=== PATIENT | female | born 2000 ===

== ENCOUNTER 2020-02-08 14:39 | Emergency (ER) | payer MEDICAID, SELFPAY ==
[2020-02-08] VITALS (15 sets, daily range): BP systolic 126–195; BP diastolic 64–117; PULSE 68–90; RESP 14–16; TEMP 36.6–37.2; O2SAT 98–100
--- NOTE | 2020-02-08 16:22 | ED_ITS ---
HPI - General Adult General Chief complaint: Skin/Abscess/Foreign Body Stated complaint: abscess? Time Seen by Provider: 02/08/20 16:21 Source: patient Mode of arrival: ambulatory Limitations: no limitations History of Present Illness HPI narrative: This is a pleasant 20-year-old female with history of currently 4 days anemia on iron supplement who endorses to me that she has recently been discharged 4 days ago from [facility] where she was induced after 40 weeks 1 day for pre-eclampsia where she was subsequently given IV magnesium and hydralazine and discharge 4 days ago after doing well she was discharged home with Tylenol, ibuprofen and iron supplement she came in today because she noted that she had this lump in the right axilla that was there for several months it was no big then a quarter however or past couple days it got significantly bigger and causing discomfort. Upon arrival patient is noted to be hypertensive 172/116 aside from the pain in the axilla from the abscess denie s any chest pain, shortness of breath, abdominal pain, nausea, vomiting. Has not had any significant vaginal bleeding and has been trending down. Related Data Allergies Allergy/AdvReac Type Severity Reaction Status Date / Time shrimp Allergy Unknown Verified 02/08/20 16:09 Review of Systems Review of Systems: Constitutional: No Weight loss, No Fever, No Chills, No Night Sweats, No Fatigue, No Malaise ENT/Mouth: No Hearing loss, No Ear Pain, No Nasal Congestion, No Sinus Pain, No Hoarseness, No sore throat, No Rhinorrhea, No Swallowing Difficulty Eyes: No Eye Pain, No Swelling, No Redness, No Foreign Body, No Discharge, No Vision Changes Cardiovascular: No Chest Pain, No SOB, No Dyspnea on Exertion, No Orthopnea, No Edema, No Palpitations Respiratory: No Cough, No Sputum, No Wheezing, No Smoke Exposure, No Dyspnea Gastrointestinal: No Nausea, No Vomiting, No Diarrhea, No Constipation, No abdominal Pain Genitourinary: no irregular bleeding, No Dysuria, No Urinary Frequency, No Hematuria, No Urinary Incontinence, No Urgency, No Flank Pain, No Urinary Flow Changes, No Hesitancy Musculoskeletal: No joint pain, No Myalgias, No Joint Swelling Skin: No Skin Lesions, No rash, + right axilla indurated area Neuro: No Weakness, No Numbness, No Paresthesias, No Loss of Consciousness, No Dizziness, No Headache Psych:No Social Issues Heme/Lymph: No Bruising, No Bleeding,No Lymphadenopathy Endocrine: No Polyuria, No Polydipsia, No Temperature Intolerance Yes all other systems are reviewed and are negative [facility] Past Medical History Medical History (Updated 02/08/20 @ 20:27 by Lauri Manjarrez NP) Anemia Asthma Preeclampsia Social History Social History Alcohol intake: never Smoked in Last 30 Days: No Use of substances other than those prescribed or required for medical reasons: No Advance Directives: No Advance Directives Information Provided: No Physical Exam Vital Signs: Vital Signs: Last Vital Signs Temp 99.0 F 02/08/20 20:00 Pulse 68 02/08/20 20:00 Resp 16 02/08/20 20:00 BP 133/69 02/08/20 20:00 Pulse Ox 98 02/08/20 20:00 Body Mass Index 0.0 Reviewed Const: General: cooperative and healthy appearing; No acute distress or intoxicated appearing Nutritional Appearance: average body habitus Orientation/consciousness: patient oriented x3 HENMT: Head: Yes normal to inspection Ears: hearing grossly normal bilaterally Eyes: General: appearance normal, both eyes and all related structures Visual Ernst: normal visual ernst by confrontation Neck: Neck: Yes normal visual inspection and No tender Thyroid: Thyroid normal Chest: Chest palpation & inspection: normal inspection of the chest Resp: Effort & Inspection: normal respiratory effort Auscultation: clear to auscultation bilaterally Cardio: Jugular venous distension: no JVD Rate: regular rate Rhythm: regular rhythm GI: Inspection: Yes normal to inspection Percussion: Yes normal to percussion Auscultation: normal bowel sounds : General: Yes no CVA tenderness Back/Spine/Pelvis: Back: no CVA tenderness Skin: Other: Right axilla there is a large and area with slight erythema measuring 3 in x 3 in. There is tender palpation. There is no formed head or did General skin exam: no rashes or lesions noted Neuro: General: patient oriented x3 Extrem: General: Yes normal to inspection Course Course Course Narrative: AP of 20-year-old female 4 days history of preeclampsia treated with 4 mg IV magnesium and hydralazine at her visit at [facility] notes reviewed not on any antihypertensive at home presenting with right axilla abscess question pains response from this as well. Patient was give 4 mg IV morphine did improve blood pressure slightly but not much. Right axilla abscess was drained using local block significant discharge and packed, refer to procedure note. Patient subsequently requiring IV antihypertensives for blood pressure management couple of doses and given that we have no LDR here recommendation of her OBGYN was to transfer patient to [facility]. Patient was given dose of Augmentin for the right axilla abscess. Case was discussed with transfer line and OBGYN Dr. Krueger agreeable plan. Accepting care with recommendation for nifedipine 30 mg ER p.o. during the course of the ED stay patient has remained quite comfortable in no acute distress aside from slight pain from the right axilla abscess which was treated she has no other complaints today. Reevaluation(s) Reevaluation #1: Patient placed on library monitor placed on Q10 BP monitoring. Consultations Consultation #1: Case discussed with Dr. Marge GUAMAN covering Recommendation for treatment with labetalol IV> repeat if needed consider p.o. and will need observation for blood pressure monitoring as we have no breathing unit here recommend for consult with [facility] for transfer Procedures Abscess I/D Site: upper extremity (Right axilla) Side (if applicable): right Local Anesthetic: lidocaine 1% Amount of anesthesia used (mL): 5 Technique: needle aspiration (Purulent discharge) and incised with blade (Subsequently incised with a 11. Blade) Amount of fluid expressed (mL): 20 Irrigation: Yes Packing used?: plain Complications: other (Did very well with procedure no complications.) Medical Decision Making Lab Data Result diagrams: 02/08/20 16:39 02/08/20 17:49 Labs: Lab Results 02/08/20 02/08/20 02/08/20 Range/Units 16:39 16:39 17:49 WBC 6.3 (4.8-10.8) X10*3/uL RBC 4.33 (4.20-5.50) X10*6/uL Hgb 11.9 L (12.0-16.0) g/dl Hct 35.7 L (37-47) % MCV 82.4 (80-98) fL MCH 27.5 (27.0-33.0) pg MCHC 33.3 (31.0-35.0) g/dl RDW 14.6 (11.0-16.0) % Plt Count 359 (160-400) X10*3/uL MPV 9.8 (9.4-12.3) fL Immature Gran % (Auto) 0.2 (0.0-0.4) % Neut % (Auto) 45.3 (45-73) % Lymph % (Auto) 41.6 H (20-40) % [place] % (Auto) 9.4 (2-11) % Eos % (Auto) 3.0 (0-4) % Baso % (Auto) 0.5 (0-2) % Lymph # (Auto) 2.6 (1.2-4.9) X10*3/uL [place] # (Auto) 0.6 (0.1-1.2) X10*3/uL Eos # (Auto) 0.2 (0.0-0.4) X10*3/uL Baso # (Auto) 0.0 (0.0-0.2) X10*3/uL Abs Immat Gran (auto) 0.01 (0.00-0.03) X10*3/uL Absolute Neuts (auto) 2.8 (2.0-8.3) X10*3/uL Absolute Nucleated RBC 0.000 (0.0-0.012) X10*3/uL Nucleated RBC % (auto) 0.0 (0.0-0.2) /100WBC Sodium Cancelled 137 Potassium Cancelled 4.0 Chloride Cancelled 106 Carbon Dioxide Cancelled 22 Anion Gap Cancelled 13 BUN Cancelled 7 L Creatinine Cancelled 0.61 Estim Creat Clear Calc Cancelled TNP Estimated GFR Cancelled > 60 Random Glucose Cancelled 79 Calcium Cancelled 8.0 L Magnesium Cancelled 1.9 Total Bilirubin Cancelled 0.3 AST Cancelled 19 ALT Cancelled 16 Alkaline Phosphatase Cancelled 150 H Total Protein Cancelled 6.5 Albumin Cancelled 3.3 L Lipase Cancelled 363 H COVID-19 (MAHAD) (Negative) COVID-19 Clin Com 02/08/20 Range/Units 19:05 WBC (4.8-10.8) X10*3/uL RBC (4.20-5.50) X10*6/uL Hgb (12.0-16.0) g/dl Hct (37-47) % MCV (80-98) fL MCH (27.0-33.0) pg MCHC (31.0-35.0) g/dl RDW (11.0-16.0) % Plt Count (160-400) X10*3/uL MPV (9.4-12.3) fL Immature Gran % (Auto) (0.0-0.4) % Neut % (Auto) (45-73) % Lymph % (Auto) (20-40) % [place] % (Auto) (2-11) % Eos % (Auto) (0-4) % Baso % (Auto) (0-2) % Lymph # (Auto) (1.2-4.9) X10*3/uL [place] # (Auto) (0.1-1.2) X10*3/uL Eos # (Auto) (0.0-0.4) X10*3/uL Baso # (Auto) (0.0-0.2) X10*3/uL Abs Immat Gran (auto) (0.00-0.03) X10*3/uL Absolute Neuts (auto) (2.0-8.3) X10*3/uL Absolute Nucleated RBC (0.0-0.012) X10*3/uL Nucleated RBC % (auto) (0.0-0.2) /100WBC Sodium Potassium Chloride Carbon Dioxide Anion Gap BUN Creatinine Estim Creat Clear Calc Estimated GFR Random Glucose Calcium Magnesium Total Bilirubin AST ALT Alkaline Phosphatase Total Protein Albumin Lipase COVID-19 (MAHAD) Negative (Negative) COVID-19 Clin Com See Note Discharge Plan Discharge Clinical Impression: Preeclampsia, Abscess of axilla, right Patient Disposition: [facility] Additional Instructions: Transfer to [facility] LDR
--- NOTE | 2020-02-08 16:22 | ECG_ITS ---
Test Reason : HTN Blood Pressure : / mmHG Vent. Rate : 063 BPM Atrial Rate : 063 BPM P-R Int : 146 ms QRS Dur : 068 ms QT Int : 418 ms P-R-T Axes : 048 054 033 degrees QTc Int : 427 ms Normal sinus rhythm Normal ECG No previous ECGs available Referred By: Lauri Manjarrez Electronically Signed By:ISABELLE BERNARD MD
[2020-02-08] MEDS: ondansetron HCL 4 MG/2 ML VIAL IVPUSH (16:44)
[2020-02-08] MEDS: Lidocaine HCl 1 % MPF 5 ML VIAL SUBCUT (16:45)
[2020-02-08 16:46] LABS: MANUAL DIFF FLAG NO
[2020-02-08] MEDS: Morphine Sulfate 4 MG/ML CARTRIDGE IVPUSH (16:46)
[2020-02-08 16:53] LABS: Basophils Percent Auto 0.5 % (0-2); Eosinophils Absolute Auto 0.2 X10*3/uL (0.0-0.4); Hematocrit 35.7 % (37-47); Hemoglobin 11.9 g/dl (12.0-16.0); Imm Gran Abs Auto 0.01 X10*3/uL (0.00-0.03); Imm Gran Pct Auto 0.2 % (0.0-0.4); Lymphocytes Absolute Auto 2.6 X10*3/uL (1.2-4.9); Lymphocytes Percent Auto 41.6 % (20-40); Mean Corpuscular HGB Conc 33.3 g/dl (31.0-35.0); Mean Corpuscular Hemoglobin 27.5 pg (27.0-33.0); Mean Corpuscular Volume 82.4 fL (80-98); Mean Platelet Volume 9.8 fL (9.4-12.3); Monocytes Absolute Auto 0.6 X10*3/uL (0.1-1.2); Monocytes Percent Auto 9.4 % (2-11); Neutrophils Absolute Auto 2.8 X10*3/uL (2.0-8.3); Neutrophils Percent Auto 45.3 % (45-73); Platelet Count 359 X10*3/uL (160-400); Red Blood Count 4.33 X10*6/uL (4.20-5.50); Red Cell Distribution Width 14.6 % (11.0-16.0); White Blood Count 6.3 X10*3/uL (4.8-10.8)
[2020-02-08] MEDS: Labetalol HCL 100 MG/20 ML VIAL 10 MG IVPUSH ×2 (17:34→17:41)
[2020-02-08] MEDS: Morphine Sulfate 2 MG/ML CARTRIDGE IVPUSH (17:41)
--- NOTE | 2020-02-08 18:12 | ED_ITS ---
HPI - History of Present Illness HPI Narrative: Called by PA. Joan from the emergency room at 5:26 pm regarding a pt who is 4 day who was induced for preeclampsia with severe features was given magnesium sulftaer and received 1 dose of hydralazine into labor at [facility] for severe range blood pressure. Related Data Allergies Allergy/AdvReac Type Severity Reaction Status Date / Time shrimp Allergy Unknown Verified 02/08/20 16:09 Review of Systems Review of Systems: Yes all other systems are reviewed and are negative Constitutional: Constitutional: Reports as per HPI and Reports no additional constitutional complaints Cardiovascular: Cardiovascular: Denies chest pain, Denies irregular heart rhythm, Denies dyspnea and Denies dyspnea on exertion Respiratory: Respiratory: Reports no additional respiratory complaints, Denies cough, Denies dyspnea and Denies dyspnea on exertion Gastrointestinal: Gastrointestinal: Reports no additional gastrointestinal complaints, Denies abdominal pain, Denies change in bowel habits, Denies nausea and Denies vomiting Genitourinary: Genitourinary: Reports no additional female genitourinary complaints [facility] Past Medical History Medical History (Updated 02/09/20 @ 00:00 by Castillo Mast) Anemia Asthma Preeclampsia Social History Social History Alcohol intake: never Smoked in Last 30 Days: No Use of substances other than those prescribed or required for medical reasons: No Advance Directives: No Advance Directives Information Provided: No Physical Exam Vital Signs: Vital Signs: Last Vital Signs Temp 99.0 F 02/08/20 20:00 Pulse 68 02/08/20 20:00 Resp 16 02/08/20 20:00 BP 133/69 02/08/20 20:00 Pulse Ox 98 02/08/20 20:00 Body Mass Index 0.0 Course Course Course Narrative: Discussed with Lauri the severe hypertension emergent therapy protocol, labetolol 20 mg IV if 2 blood pressures are in the severe range 15 minutes apart, repeat BP in 10 min if in the severe range =>160/and / or 110, Labetolol 40 mg IV, BP q 10 in x1, Q15 in x1, q 30 x1 and Q1 x 4 hours afterwards. Start the patient on labetalol 300 mg p.o. b.i.d. , transfer to [facility] for blood pressure observation for few hours before the patient is able to be discharged home. The patient received 1 dose of 20 mg labetalol IV , her blood pressure dropped below in the 130s to 140s over 80s- 90 range MDM - OB/Uterine Contractions Differential Diagnosis Differential diagnosis: Likely pre-eclampsia Lab Data Result diagrams: 02/08/20 16:39 02/08/20 17:49 Labs: Lab Results 02/08/20 02/08/20 02/08/20 Range/Units 16:39 16:39 17:49 WBC 6.3 (4.8-10.8) X10*3/uL RBC 4.33 (4.20-5.50) X10*6/uL Hgb 11.9 L (12.0-16.0) g/dl Hct 35.7 L (37-47) % MCV 82.4 (80-98) fL MCH 27.5 (27.0-33.0) pg MCHC 33.3 (31.0-35.0) g/dl RDW 14.6 (11.0-16.0) % Plt Count 359 (160-400) X10*3/uL MPV 9.8 (9.4-12.3) fL Immature Gran % (Auto) 0.2 (0.0-0.4) % Neut % (Auto) 45.3 (45-73) % Lymph % (Auto) 41.6 H (20-40) % [place] % (Auto) 9.4 (2-11) % Eos % (Auto) 3.0 (0-4) % Baso % (Auto) 0.5 (0-2) % Lymph # (Auto) 2.6 (1.2-4.9) X10*3/uL [place] # (Auto) 0.6 (0.1-1.2) X10*3/uL Eos # (Auto) 0.2 (0.0-0.4) X10*3/uL Baso # (Auto) 0.0 (0.0-0.2) X10*3/uL Abs Immat Gran (auto) 0.01 (0.00-0.03) X10*3/uL Absolute Neuts (auto) 2.8 (2.0-8.3) X10*3/uL Absolute Nucleated RBC 0.000 (0.0-0.012) X10*3/uL Nucleated RBC % (auto) 0.0 (0.0-0.2) /100WBC Sodium Cancelled 137 Potassium Cancelled 4.0 Chloride Cancelled 106 Carbon Dioxide Cancelled 22 Anion Gap Cancelled 13 BUN Cancelled 7 L Creatinine Cancelled 0.61 Estim Creat Clear Calc Cancelled TNP Estimated GFR Cancelled > 60 Random Glucose Cancelled 79 Calcium Cancelled 8.0 L Magnesium Cancelled 1.9 Total Bilirubin Cancelled 0.3 AST Cancelled 19 ALT Cancelled 16 Alkaline Phosphatase Cancelled 150 H Total Protein Cancelled 6.5 Albumin Cancelled 3.3 L Lipase Cancelled 363 H COVID-19 (MAHAD) (Negative) COVID-19 Clin Com 02/08/20 Range/Units 19:05 WBC (4.8-10.8) X10*3/uL RBC (4.20-5.50) X10*6/uL Hgb (12.0-16.0) g/dl Hct (37-47) % MCV (80-98) fL MCH (27.0-33.0) pg MCHC (31.0-35.0) g/dl RDW (11.0-16.0) % Plt Count (160-400) X10*3/uL MPV (9.4-12.3) fL Immature Gran % (Auto) (0.0-0.4) % Neut % (Auto) (45-73) % Lymph % (Auto) (20-40) % [place] % (Auto) (2-11) % Eos % (Auto) (0-4) % Baso % (Auto) (0-2) % Lymph # (Auto) (1.2-4.9) X10*3/uL [place] # (Auto) (0.1-1.2) X10*3/uL Eos # (Auto) (0.0-0.4) X10*3/uL Baso # (Auto) (0.0-0.2) X10*3/uL Abs Immat Gran (auto) (0.00-0.03) X10*3/uL Absolute Neuts (auto) (2.0-8.3) X10*3/uL Absolute Nucleated RBC (0.0-0.012) X10*3/uL Nucleated RBC % (auto) (0.0-0.2) /100WBC Sodium Potassium Chloride Carbon Dioxide Anion Gap BUN Creatinine Estim Creat Clear Calc Estimated GFR Random Glucose Calcium Magnesium Total Bilirubin AST ALT Alkaline Phosphatase Total Protein Albumin Lipase COVID-19 (MAHAD) Negative (Negative) COVID-19 Clin Com See Note Discharge Plan Discharge Clinical Impression: Preeclampsia, Abscess of axilla, right Patient Disposition: [facility] Additional Instructions: Transfer to [facility] LDR Interventions: Acute Care Transfer Worksheet (ED) Last Done: 02/08/20 20:37 Discharge Date/Time: 02/08/20 20:40
[2020-02-08 18:37] LABS: Alanine Aminotransferase 16 U/L (0-31); Albumin Level 3.3 g/dL (3.5-5.0); Alkaline Phosphatase 150 U/L (39-117); Anion Gap 13 (12-20); Aspartate Amino Transferase 19 U/L (5-31); Bilirubin Total 0.3 mg/dL (0.0-1.0); Blood Urea Nitrogen 7 mg/dL (9-16); Carbon Dioxide 22 mmol/L (22-29); Chloride 106 mmol/L (96-108); Estimated Glomerular Filt Rate > 60; Glucose Random 79 mg/dL (60-115); Magnesium 1.9 mg/dL (1.6-2.6); Sodium 137 mmol/L (135-145); Total Protein 6.5 g/dL (6.5-8.0)
--- NOTE | 2020-02-08 18:39 | PC.NURSE ---
[employer] factory worker aware of bp. pt reports decrease in pain. pt reports she is 4 days post vaginal delivery, denies complications during or .
[2020-02-08] MEDS: Labetalol HCL 100 MG/20 ML VIAL 40 MG IVPUSH (18:46)
[2020-02-08 18:53] LABS: Lipase 363 U/L (8-78)
[2020-02-08 19:29] LABS: COVID-19 Test Negative (Negative)
--- NOTE | 2020-02-08 19:46 | PC.NURSE ---
THIS RN SPOKE WITH [facility]. NIFEDIPINE UNAVAILABLE IN [facility] AT THIS TIME. PER PHARMACIST, MED TO BE BROUGHT TO ED FOR ADMINISTRATION. WILL ADMINISTER MEDICATION UPON ARRIVAL TO ED.
[2020-02-08] MEDS: NIFEdipine ER 30 MG TAB.ER.24 PO (19:53)
[2020-02-08] MEDS: Amoxicillin/Potassium Clav 875 MG TABLET PO (19:53)
--- NOTE | 2020-02-08 20:05 | PC.NURSE ---
PATIENT MEDICATED ORDERED. AWAITING TRANSPORT FOR TRANSFER TO [facility], ADMITTING PHYSICIAN . PATIENT UPDATED REGARDING PLAN OF CARE.
== END 2020-02-08 20:40 | disposition short-term general hospital (02) ==
PROVIDERS: Nurse Practitioner Primary Care; Emergency Provider Internal Medicine
DX: L02.411 Cutaneous abscess of right axilla (principal); R22.31 Localized swelling, mass and lump, right upper limb; Z20.828 Contact with and (suspected) exposure to other viral communicable diseases
CPT/HCPCS: 10060; 36415; 80053; 83690; 83735; 85025; 87635; 93005; 96374; 96375; 96376; 99285; J2270; J2405

== ENCOUNTER 2020-10-25 19:51 | Emergency (ER) | payer SELFPAY ==
--- NOTE | ~2020-10-25 | XR_ITS ---
EXAMINATION: XR LUMBOSACRAL SPINE CLINICAL INFORMATION: Back pain COMPARISON: None TECHNIQUE: Three views of the lumbosacral spine. FINDINGS: The vertebral bodies and posterior elements are normal. The disc spaces are preserved and the vertebral alignment is normal. The paraspinal soft tissues are normal. XR/XR lumbar spine 2-3V IMPRESSION: Unremarkable examination.
[2020-10-25 19:57] VITALS: BP 127/86; PULSE 87; RESP 16; TEMP 36.7; O2SAT 99; BMI 19.8
--- NOTE | 2020-10-25 21:58 | ED_ITS ---
HPI - Back Pain/Injury General Chief Complaint: Back Pain/Injury Stated Complaint: back pain Time Seen by Provider: 10/25/20 21:56 Source: patient Mode of arrival: ambulatory Limitations: no limitations History of Present Illness HPI Narrative: 20 years old female came in for evaluation of back pain. Back pain started 8-9 months ago after patient had epidural injection for her giving , patient otherwise declined any recent back injury, no recent heavy lifting, patient declined any fever, declined any urinary incontinence or stool incontinence. Sometimes get pain radiating down to the right knee. Pain is aggravated by movement and relieved by rest. Related Data Previous Rx's Medication Instructions Recorded cefuroxime axetil 250 mg tablet 250 mg PO BID #14 tab 10/25/20 Allergies Allergy/AdvReac Type Severity Reaction Status Date / Time shrimp Allergy Unknown Verified 10/25/20 21:47 Review of Systems Review of Systems: All other systems are reviewed and are negative Constitutional: Reports as per HPI and Reports no additional constitutional complaints Eyes: Reports as per HPI and Reports no additional eye complaints Reports system reviewed and no additional complaints, except as documented Cardiovascular: Reports as per HPI and Reports no additional cardiovascular complaints Respiratory: Reports as per HPI and Reports no additional respiratory complaints Gastrointestinal: Reports as per HPI and Reports no additional gastrointestinal complaints Genitourinary: Reports no additional female genitourinary complaints Musculoskeletal: Reports no additional musculoskeletal complaints Skin/Breast: Reports system reviewed and no additional complaints, except as docu Psychiatric: Reports no additional psychiatric complaints Endocrine: Reports no additional endocrine complaints Hematologic/Lymphatic: Reports no additional hematologic/lymphatic complaints Allergic/Immunologic: Reports no additional allergic/immunologic complaints Reports system reviewed and no additional complaints, except as documented and Reports Abnormal speech present [facility] Past Medical History Medical History Anemia Asthma Preeclampsia Social History Social History Alcohol intake: never Advance Directives: No Advance Directives Information Provided: Yes Patient : No Physical Exam Vital Signs: Vital Signs: Last Vital Signs Temp 98.0 F 10/25/20 19:57 Pulse 87 10/25/20 19:57 Resp 16 10/25/20 19:57 BP 127/86 10/25/20 19:57 Pulse Ox 99 10/25/20 19:57 Body Mass Index 19.8 Vital signs have been reviewed as appeared to be correct. Blood pressure normal. Heart rate normal. Respiration rate normal. Temperature normal. Oxygen saturation normal. Appearance: Alert. Oriented X3. No acute distress. Head: Normal external exam. Normocephalic. Atraumatic. No Domingo signs noted. No raccoon eyes noted Eyes: PERRLA. EOMI. Conjunctiva and sclera normal. Eyelids normal. ENT: TM's Normal. Pharynx normal. Uvula midline. Moist mucous membranes. No trismus noted. No drooling noted. No muffled voice noted. Neck: Normal inspection. Neck supple. FROM. No adenopathy. Thyroid Normal. No meningeal signs. No neck mass noted. CVS: Normal heart rate and rhythm. Heart sound normal. No murmurs noted. Pulses normal throughout. Respiratory: No respiratory distress. Painless inspiration. Breath sounds normal. No wheezes/rales/rhonchi noted. Chest nontender. No accessory muscle usage noted or decreased air movement noted. Abdomen: Soft and nontender. Bowel sounds normal in all 4 quadrants. No distention noted. No organomegaly noted. No visible injury noted. Back: No CVA tenderness. Full range of motion noted. Skin: Skin warm and dry. Normal skin color. Normal skin turgor. No rashes/lesions/lacerations noted. Extremities: No lower extremity edema. Extremities exhibit normal range of motion. Extremities nontender. Neuro: Oriented X 3. No motor deficit. No sensory deficit. Reflexes normal. Course Course Course Narrative: Assessment and plan. Few months history of no back pain, normal neurological exam, normal x-ray the lumbar spine. Patient was instructed to use NSAIDs p.r.n. pain,rest, follow-up with PCP. UTI start the patient on cefuroxime. MDM - Back Pain/Injury Lab Data Attestation: I reviewed the patient's lab results. Labs: Lab Results 10/25/20 10/25/20 Range/Units 22:25 22:25 Urine Color SANDY Urine Appearance CLOUDY Urine pH 7.5 (5.0-8.0) Ur Specific [place] 1.025 (1.005-1.025) Urine Protein 1+ H (NEG-TRACE) MG/DL Urine Glucose (UA) NEG (NEG) MG/DL Urine Ketones NEG (NEG) MG/DL Urine Blood 3+ H (NEG) Urine Nitrite POS H (NEG) Ur Leukocyte Esterase TRACE H (NEG) Urine RBC 76-150 H (0) /HPF Urine WBC 1-4 (0-4) /HPF Ur Squamous Epith Cells 1+ /LPF Urine Bacteria 2+ /LPF Urine Test NEGATIVE (NEGATIVE) Imaging Data Lumbar spine x-ray: Radiologist's impression: Unremarkable examination. Discharge Plan Discharge Clinical Impression: Strain of lumbar region Qualifiers: Encounter type: initial encounter Qualified Code(s): S39.012A - Strain of muscle, fascia and tendon of lower back, initial encounter UTI (urinary tract infection) Qualifiers: Urinary tract infection type: acute cystitis Hematuria presence: with hematuria Qualified Code(s): N30.01 - Acute cystitis with hematuria Patient Disposition: Home, Self-Care Instructions: Low Back Strain (ED) Additional Instructions: Follow-up with your PCP in 2-3 weeks Prescriptions: New cefuroxime axetil 250 mg tablet 250 mg PO BID Qty: 14 RF: 0 Referrals: Physician,Unknown [Primary Care Provider] - 2 days Stand Alone Forms: Work/School Release
[2020-10-25] MEDS: Ibuprofen 600 MG TABLET PO (22:26)
[2020-10-25 22:31] LABS: Glucose Urine UA NEG (NEG); Leukocyte Esterase Urine TRACE (NEG); Nitrite Urine POS (NEG); PH 7.5 (5.0-8.0); Specific Gravity - Urine 1.025 (1.005-1.025); UACC Culture Trigger YES; Urine Blood 3+ (NEG); Urine Ketones NEG (NEG); Urine Protein 1+ MG/DL (NEG-TRACE)
[2020-10-25 22:33] LABS: Appearance Urine CLOUDY; Color Urine AMBER; UPreg QC Valid YES; Urine Pregnancy NEGATIVE (NEGATIVE)
[2020-10-25 22:38] LABS: Bacteria Urine 2+ /LPF; Squamous Epithelial Cell Urine 1+ /LPF
== END 2020-10-25 23:14 | disposition home or self-care (01) ==
PROVIDERS: Emergency Provider Emergency Medicine
DX: S39.012A Strain of muscle, fascia and tendon of lower back, initial encounter (principal); N30.01 Acute cystitis with hematuria; X58.XXXA Exposure to other specified factors, initial encounter; Y93.9 Activity, unspecified; Y92.9 Unspecified place or not applicable; Y99.9 Unspecified external cause status; Z79.899 Other long term (current) drug therapy
CPT/HCPCS: 72100; 81001; 81025; 87086; 87088; 87186; 99284

== ENCOUNTER 2021-01-28 08:41 | Emergency (ER) | payer OTHER, SELFPAY ==
[2021-01-28 08:56] VITALS: BP 106/69; PULSE 76; RESP 18; TEMP 36.6; O2SAT 100; BMI 19.3
--- NOTE | 2021-01-28 09:16 | ED.NAVMDI ---
HPI - Nausea/Vomiting/Diarrhea General Chief complaint: General Medical Stated complaint: lightheaded, nausea, Time Seen by Provider: 01/28/21 09:03 Source: patient Mode of arrival: ambulatory Limitations: no limitations History of Present Illness MD elicited complaint: nausea and other (headaches, feels weak at times) Pertinent past history: other (found out she was LMP end of november) Onset (ago): week(s) (1) Associated nausea: Yes Associated abdominal pain: No Severity: mild Exacerbating factors: none Relieving factors: none Context: other (pos , someone at her work dx with COVID, she is not vaccinated) Associated symptoms: loss of appetite and nausea/vomiting Related Data Previous Rx's Medication Instructions Recorded cefuroxime axetil 250 mg tablet 250 mg PO BID #14 tab 10/25/20 hydrocortisone 1 % topical cream 1 appl TOPICAL TID PRN #28.35 g 01/28/21 (Cortisone (hydrocortisone)) metoclopramide HCl 10 mg tablet 10 mg PO Q6H PRN #30 tab 01/28/21 (Reglan) vits no.108-iron,carbonyl 1 tab PO BEDTIME #90 tab 01/28/21 30 mg iron-folic acid 1 mg tablet (Kosher Plus Iron) Allergies Allergy/AdvReac Type Severity Reaction Status Date / Time shrimp Allergy Unknown Verified 10/25/20 21:47 Review of Systems Review of Systems: Constitutional :No Fever, No Chills ENT/Mouth : No sore throat, No Rhinorrhea Eyes: No Eye Pain, No Swelling, No Redness Cardiovascular : No Chest Pain, No SOB Respiratory : No Cough, No Sputum, No Wheezing Gastrointestinal : pos Nausea, No Vomiting, No Diarrhea Genitourinary : No Dysuria, No Urinary Frequency, No Hematuria, Musculoskeletal : No joint pain, No Myalgias, No Joint Swelling Skin : No Skin Lesions, pos chronic rash for several months comes and goes Neuro : No Weakness, No Numbness, No Dizziness, pos Headache Gastrointestinal: Gastrointestinal: Reports nausea PMFSH Past Medical History Attestation statement: The following information was validated with the patient. Medical History Anemia Asthma Preeclampsia Social History Social History (Updated 01/28/21 @ 09:16 by Benita Rosales DO) Alcohol intake: never Patient Tobacco Use Status: Never used Tobacco Use of substances other than those prescribed or required for medical reasons: No Advance Directives: No Patient : Yes Physical Exam Vital Signs: Vital Signs: Last Vital Signs Temp 98.5 F 01/28/21 09:31 Pulse 75 01/28/21 09:31 Resp 18 01/28/21 09:31 BP 124/86 01/28/21 09:31 Pulse Ox 100 01/28/21 09:31 Body Mass Index 19.3 Appearance: Alert. Oriented X3. No acute distress. Eyes: Pupils equal, round and reactive to light. ENT: Pharynx normal. Neck: Normal inspection. Neck supple. CVS: Normal heart rate and rhythm. Pulses normal. Respiratory: No respiratory distress. Breath sounds normal. Abdomen: Soft and nontender. Skin: Skin warm and dry. Normal skin color. dry hyperpigmented scaly raised areas on arms - pruritic at times per patient started on R wrist, patchy in nature mostly arms and legs Extremities: No lower extremity edema. Neuro: Oriented X 3. No motor deficit. No sensory deficit. MDM - Nausea/Vomiting/Diarrhea MDM Narrative Medical decision making narrative: 21 yo female with new dx of no pain/vaginal bleeding c/o some nausea - not toxic appearing VS stable will obtain UA/UPT. At this time concerned about possible COVID exposure - testing ordered. Also has chronic rash on arms that is pruritic seems like a dermatitis - will start on intermittent topical steroids - dispo per results and findings. Plans on following up with [facility] for OBGYN. Lab Data Labs: Lab Results 01/28/21 01/28/21 01/28/21 Range/Units 09:34 09:34 09:34 Urine Color YELLOW Urine Appearance HAZY Urine pH 6.5 (5.0-8.0) Ur Specific [place] 1.025 (1.005-1.025) Urine Protein NEG (NEG-TRACE) MG/DL Urine Glucose (UA) NEG (NEG) MG/DL Urine Ketones 5 (NEG) MG/DL Urine Blood NEG (NEG) Urine Nitrite NEG (NEG) Ur Leukocyte Esterase NEG (NEG) Urine Test POSITIVE H (NEGATIVE) COVID-19 (MAHAD) Negative (Negative) COVID-19 Clin Com See Note Discharge Plan Discharge Clinical Impression: Nausea, Dermatitis Qualifiers: Weeks of gestation: less than 8 weeks Qualified Code(s): Z3A.01 - Less than 8 weeks gestation of Patient Disposition: Home, Self-Care Instructions: (ED), Acute Nausea and Vomiting (ED), Dermatitis (ED) Additional Instructions: return to ED for any worsening symptoms or concerns please follow up with your OBGYN at [facility] NEGATIVE Prescriptions: New metoclopramide HCl [Reglan] 10 mg tablet 10 mg PO Q6H PRN (Reason: nausea and vomiting) Qty: 30 RF: 0 Kosher Plus Iron 30 mg iron- 1 mg tablet 1 tab PO BEDTIME Qty: 90 RF: 1 hydrocortisone [Cortisone (hydrocortisone)] 1 % cream 1 appl topical TID PRN (Reason: rash) Qty: 28.35 RF: 0 No Action cefuroxime axetil 250 mg tablet 250 mg PO BID Qty: 14 RF: 0 Stand Alone Forms: Work/School Release
[2021-01-28 09:31] VITALS: BP 124/86; PULSE 75; RESP 18; TEMP 36.9; O2SAT 100
[2021-01-28 09:46] LABS: Appearance Urine HAZY; Color Urine YELLOW; Glucose Urine UA NEG (NEG); Leukocyte Esterase Urine NEG (NEG); Nitrite Urine NEG (NEG); PH 6.5 (5.0-8.0); Specific Gravity - Urine 1.025 (1.005-1.025); UPreg QC Valid YES; Urine Blood NEG (NEG); Urine Ketones 5 MG/DL (NEG); Urine Pregnancy POSITIVE (NEGATIVE); Urine Protein NEG (NEG-TRACE)
[2021-01-28 09:56] LABS: COVID-19 Test Negative (Negative)
== END 2021-01-28 10:09 | disposition home or self-care (01) ==
PROVIDERS: Emergency Provider Emergency Medicine
DX: O26.91 Pregnancy related conditions, unspecified, first trimester (principal); Z3A.01 Less than 8 weeks gestation of pregnancy; Z79.899 Other long term (current) drug therapy
CPT/HCPCS: 36415; 81003; 81025; 87635; 99283; 99284

== ENCOUNTER 2022-09-15 01:54 | Emergency (ER) | payer MEDICAID, SELFPAY ==
[2022-09-15 02:12] VITALS: BP 145/96; PULSE 65; RESP 16; TEMP 37.1; O2SAT 98; BMI 20.8
--- NOTE | 2022-09-15 05:27 | ED_ITS ---
HPI - Extremity Problem General Chief complaint: Extremity Injury, Upper Stated complaint: Finger swelling Time Seen by Provider: 09/15/22 04:03 History of Present Illness HPI Narrative: Patient is a 22-year-old female present today with having left ring finger pain distally. Near the nail bed. There is no systemic fever. Patient claims he does not bite her nails. She did have fake nails removed by herself. No fever no chills. No chest pain or shortness breath no nausea no vomiting. Patient from home. Related Data Previous Rx's Medication Instructions Recorded cefuroxime axetil 250 mg tablet 250 mg PO BID #14 tabs 10/25/20 hydrocortisone 1 % topical cream 1 appl topical TID PRN rash #28.35 01/28/21 (Cortisone (hydrocortisone)) grams metoclopramide HCl 10 mg tablet 10 mg PO Q6H PRN nausea and 01/28/21 (Reglan) vomiting #30 tabs vits no.108-iron,carbonyl 1 tab PO BEDTIME #90 tabs 01/28/21 30 mg iron-folic acid 1 mg tablet (Kosher Plus Iron) amoxicillin 875 mg-potassium 1 tab PO BID #14 tabs 09/15/22 clavulanate 125 mg tablet Allergies Allergy/AdvReac Type Severity Reaction Status Date / Time shrimp Allergy Unknown Verified 10/25/20 21:47 Review of Systems Review of Systems: Positive pain to the left ring finger Yes all other systems are reviewed and are negative COUNT INCLUDES THE [facility] Past Medical History Medical History Anemia Asthma Preeclampsia Social History Social History (Updated 01/28/21 @ 09:16 by Melva Rosales DO) Alcohol intake: never Patient Tobacco Use Status: Never used Tobacco Advance Directives: No Advance Directives Information Provided: No Physical Exam Vital Signs: Vital Signs: Last Vital Signs Temp 98.7 F 09/15/22 02:12 Pulse 65 09/15/22 02:12 Resp 16 09/15/22 02:12 BP 145/96 H 09/15/22 02:12 Pulse Ox 98 09/15/22 02:12 O2 Del Method Room Air 09/15/22 02:12 BMI result Body Mass Index 20.8 Medical Decision Making Medical Decision Making MDM Narrative: Well-appearing no acute distress. Patient removed her old fake nail 3 days ago now as swollen index finger. On exam there is no signs of paronychia. There is some swelling there. There is no [place] sign to suggest patient has tenosynovitis. Is well-appearing. Will start patient on Augmentin for presumptive treatment of possible early paronychia. Currently in stable condition with discharge home. Lab Data MDM Lab Attestation statement: I reviewed the patient's lab results. Discharge Plan Discharge Clinical Impression: Finger infection Patient Disposition: Home, Self-Care Instructions: Paronychia (ED) Prescriptions: New amoxicillin-pot clavulanate 875-125 mg tablet 1 tab PO BID Qty: 14 0RF No Action cefuroxime axetil 250 mg tablet 250 mg PO BID Qty: 14 0RF metoclopramide HCl [Reglan] 10 mg tablet 10 mg PO Q6H PRN (Reason: nausea and vomiting) Qty: 30 0RF Kosher Plus Iron 30 mg iron- 1 mg tablet 1 tab PO BEDTIME Qty: 90 1RF hydrocortisone [Cortisone (hydrocortisone)] 1 % cream 1 appl topical TID PRN (Reason: rash) Qty: 28.35 0RF
== END 2022-09-15 05:40 | disposition home or self-care (01) ==
PROVIDERS: Emergency Provider Emergency Medicine Emergency Medical Services
DX: L03.012 Cellulitis of left finger (principal); M79.645 Pain in left finger(s)
CPT/HCPCS: 99283

== ENCOUNTER 2023-10-24 18:07 | Outpatient (REF) | payer MEDICAID, SELFPAY ==
[2023-10-24 19:32] LABS: Bacterial Vaginosis PCR POSITIVE (Negative); Candida Group PCR DETECTED (Not Detect); Candida glab krusei PCR NOT DETECTED (Not Detect); Trichomonas vaginalis PCR NOT DETECTED (Not Detect)
== END 2023-10-24 18:08 | disposition home or self-care (01) ==
LOC: HO.HHCLNP 18:07
PROVIDERS: Visit Provider Family Medicine
DX: N89.8 Other specified noninflammatory disorders of vagina (principal)
CPT/HCPCS: 0352U

== ENCOUNTER 2023-12-10 10:41 | Outpatient (REF) | payer MEDICAID, SELFPAY ==
[2023-12-12 13:43] LABS: RPR Rapid Plasma Reagin NON-REACTIVE (NON-REACTIVE)
== END 2023-12-10 10:42 | disposition home or self-care (01) ==
LOC: HO.HHCL 10:41
PROVIDERS: Visit Provider Emergency Medicine
DX: R21 Rash and other nonspecific skin eruption (principal)
CPT/HCPCS: 36415; 86592